=== PATIENT | female | born 1965 | race Caucasian/White ===

== ENCOUNTER 2024-02-16 14:23 | Emergency (ER) | payer OTHER ==
[~2024-02-16] VITALS: Ht 152.4 cm; Wt 67.6 kg
[2024-02-16 14:24] VITALS: BP 165/64; PULSE 72; RESP 20; TEMP 98.1; O2SAT 97
[2024-02-16] MEDS: KETOROLAC 30 MG/ML VIAL IM ONE (15:52)
[2024-02-16] MEDS: ACETAMINOPHEN EXTRA STRENGTH 500 MG TAB PO ONE (15:53)
== END 2024-02-16 16:36 | disposition home or self-care (01) ==
LOC: MED 14:23
DX: S93.491A Sprain of other ligament of right ankle, initial encounter (principal); M25.562 Pain in left knee; Z79.899 Other long term (current) drug therapy; W01.198A Fall on same level from slipping, tripping and stumbling with subsequent striking against other object, initial encounter; Y93.89 Activity, other specified; Y92.89 Other specified places as the place of occurrence of the external cause; Y99.8 Other external cause status
CPT/HCPCS: 73562; 73610; 96372; 99284; J1885